=== PATIENT | male | born 1980 | race Caucasian/White ===

== ENCOUNTER 2022-03-23 14:12 | Emergency (ER) | payer BC ==
[~2022-03-23] VITALS: Ht 177.8 cm; Wt 79.4 kg
[2022-03-23 14:12] VITALS: BP_SYST 145
--- NOTE | 2022-03-23 14:12 | NUR ---
BROUGHT BACK TO HALLWAY BED AND TRIAGED. REPORT GIVEN TO AUGUSTUS
--- NOTE | 2022-03-23 14:57 | NUR ---
DR HAMILTON AT BEDSIDE FOR EVALUATION
[2022-03-23] MEDS ORDERED: BACITRACIN 1 GM OINT TP ONE (15:00)
[2022-03-23] MEDS ORDERED: DIPHTH,PERTUSS(ACELL),TET VAC 0.5 ML VIAL (Tdap) I.M. ONE (15:00)
[2022-03-23] MEDS ORDERED: LIDOCAINE 1% 10 MG/ML, 20 ML MDV INJ ONE (15:00)
--- NOTE | 2022-03-23 16:00 | NUR ---
Patient is a 41-year-old male who presents emergency department for a left wrist laceration. Patient states that the sharp piece of metal. He reports pain, controlled bleeding but denies any numbness or loss of movement. He denies any suicidal ideations, homicidal ideations, or any other acute complaints.
--- NOTE | 2022-03-23 16:25 | NUR ---
Patient given written and verbal discharge instructions and verbalizes understanding. ER MD discussed with patient the results and treatment provided. Patient in stable condition. ID arm band removed. Patient to return 48 hours for wound check. Opportunity for questions provided and answered. Medication side effect fact sheet provided.
[2022-03-23 16:26] VITALS: BP_SYST 145
== END 2022-03-23 16:25 | disposition home or self-care (01) ==
LOC: SED 14:12
DX: S61.512A Laceration without foreign body of left wrist, initial encounter (principal); Z79.899 Other long term (current) drug therapy; W26.8XXA Contact with other sharp object(s), not elsewhere classified, initial encounter; Y93.89 Activity, other specified; Y92.89 Other specified places as the place of occurrence of the external cause; Y99.8 Other external cause status
CPT/HCPCS: 90715; 99283